=== PATIENT | female | born 2005 | race Caucasian/White ===

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

== ENCOUNTER 2023-07-19 22:14 | Inpatient (IN) | payer BC, SELFPAY ==
[2023-07-19 22:15] VITALS: BP 174/98; PULSE 134; RESP 20; TEMP 36.8; O2SAT 99; BMI 39.1
[2023-07-19 22:30] VITALS: BP 178/96; PULSE 124; RESP 22; O2SAT 96
--- NOTE | 2023-07-19 22:30 | CT_ITS ---
PROCEDURE INFORMATION: Exam: CT Abdomen And Pelvis With Contrast Exam date and time: 07/20/2023 12:29 AM Age: 17 years old Clinical indication: Abdominal pain; Additional info: Rlq/r low back pain/n/v TECHNIQUE: Imaging protocol: Computed tomography of the abdomen and pelvis with contrast. Radiation optimization: All CT scans at this facility use at least one of these dose optimization techniques: automated exposure control; mA and/or kV adjustment per patient size (includes targeted exams where dose is matched to clinical indication); or iterative reconstruction. Contrast material: ISOVUE; Contrast volume: 75 ml; Contrast route: IV; REPORTING DATA: Count of CT and Cardiac NM exams in prior 12 months: This patient has received 0 known CTs and 0 known cardiac nuclear medicine studies in the 12 months prior to the current study. COMPARISON: [facility] CT abdomen pelvis wo con 01/17/2019 12:56 PM FINDINGS: Liver: Hepatomegaly. No mass. Gallbladder and bile ducts: Normal. No calcified stones. No ductal dilation. Pancreas: Normal. No ductal dilation. Spleen: Normal. No splenomegaly. Adrenal glands: Normal. No mass. Kidneys and ureters: Small wedge-shaped foci of hypoenhancement within the right kidney mid/inferior pole extending to the peripheral cortex. No hydronephrosis. Minimal right inferior perinephric stranding Stomach and bowel: Unremarkable. No obstruction. No mucosal thickening. Appendix: No evidence of appendicitis. Intraperitoneal space: Unremarkable. No free air. No significant fluid collection. Vasculature: Unremarkable. No abdominal aortic aneurysm. Lymph nodes: Unremarkable. No enlarged lymph nodes. Urinary bladder: Unremarkable as visualized. Reproductive: Unremarkable as visualized. Bones/joints: Mild leftward curvature of the spine. No acute fracture. Soft tissues: Unremarkable. IMPRESSION: Small wedge-shaped foci of hypoenhancement within the right kidney mid/inferior pole with adjacent perinephric fat stranding, findings compatible with acute pyelonephritis.
[2023-07-19 22:34] LABS: POC Glucose,Bedside 295 (70-110)
[2023-07-19 22:46] VITALS: BP 178/96; PULSE 118; RESP 18
[2023-07-19 22:49] LABS: Basophils # 0.1 K/mm3 (0-0.2); Basophils % 0.2 % (0.1-2.0); Eosinophils # 0.1 K/mm3 (0.0-0.4); Eosinophils % 0.2 % (0.1-12.0); Hemoglobin 15.2 g/dL (12.2-16.2); Lymphocytes # 1.9 K/mm3 (0.7-4.5); Mean Corpuscular HGB Conc 35.3 g/dL (31.8-35.4); Mean Corpuscular Hemoglobin 29.6 pg (27.0-31.2); Mean Corpuscular Volume 83.8 fl (81-99); Mean Platelet Volume 9.4 fl (7.4-10.4); Monocytes % 3.9 % (1.7-9.3); Neutrophils # 23.4 K/mm3 (1.8-7.8); Neutrophils % 88.6 % (37.0-80.0); Platelet Count 306 K/mm3 (142-424); Red Blood Count 5.13 M/mm3 (4.20-5.40); Red Cell Distribution Width 13.4 % (11.5-17.5); White Blood Count 26.4 K/mm3 (4.5-13.0)
--- NOTE | 2023-07-19 22:50 | ECG_ITS ---
APPROVED REPORT Exam: Resting ECG HR:113 bpm ECG Measurements Heart Rate 113 AXES TX 152 P 54 QRSd 87 QRS 62 QT 316 T -11 QTc 383 Conclusion SINUS TACHYCARDIA NONSPECIFIC T-WAVE ABNORMALITY ABNORMAL ECG UNCONFIRMED REPORT Electronically signed by : Hai Lewis MD 07/22/2023 08:42:01
[2023-07-19 22:52] LABS: VBG Base Excess -4.2 mmol/L (-2.4-2.3); VBG HCO3 20.2 mmol/L (23-30); VBG Oxygen Saturation 79.9 % (50-70); VBG PCO2 31.9 mmol/L (35-51); VBG PH 7.42 mmol/L (7.31-7.41); VBG PO2 42.3 mmol/L (28-40); VBG Total CO2 21.2 mmol/L (23-27)
[2023-07-19 22:53] LABS: Chloride 101 mmol/L (98-107); Potassium 3.8 mmoL/L (3.5-5.1); Sodium 134 mmol/L (136-145)
[2023-07-19 22:55] LABS: Blood Urea Nitrogen 8 mg/dl (7-17); Creatinine Clearance Estimated 305 mL/min (50-200); Estimated Glomerular Filt Rate 159 ml/min (>60); GFR (African American) 192 ML/MIN (>60)
[2023-07-19 22:56] LABS: Alanine Aminotransferase 29 U/L (12-78); Albumin Level 4.3 g/dl (3.5-5.0); Alkaline Phosphatase 108 U/L (38-126); Anion Gap 14.8 mEq/L (5-15); Aspartate Amino Transferase 31 U/L (14-36); Bilirubin,Total 0.9 mg/dl (0.2-1.3); Calcium 8.7 mg/dl (8.4-10.2); Carbon Dioxide 22 mmol/L (22.0-30.0); Globulin 4.2 g/dL (1.3-3.2); Glucose 290 mg/dl (74-100); Lipase 271 U/L (23-300); Total Protein,Serum 8.5 g/dl (6.3-8.2)
[2023-07-19 22:59] LABS: Acetone, Serum (Rapid) None Detected (None Detect); HCG Qualitative, Serum Negative (Negative); MANUAL DIFFERENTIAL MANUAL DIFFERENTIAL (MANUAL DIFF)
[2023-07-19 23:00] VITALS: BP 187/92; PULSE 113; RESP 20; O2SAT 96
--- NOTE | 2023-07-19 23:21 | HMH.EDGENADL ---
Discharge Plan Disposition Patient Disposition: Admitted Clinical Impressions Clinical Impression: Severe sepsis, Abdominal pain, RLQ, Pyelonephritis, Hyperglycemia Leukocytosis Qualifiers: Leukocytosis type: unspecified Qualified Code(s): D72.829 - Elevated white blood cell count, unspecified Discharge ED Provider: Rudy Buckner General Adult HPI <Annel Brady DO - Last Filed: 07/19/23 23:29> General Chief complaint: Nausea/Vomiting/Diarrhea Stated complaint: Type 1 diabetic, weak, abd pain Time Seen by Provider: 07/19/23 22:17 Mode of Arrival: Wheelchair Source of Information: Patient Limitations: No Limitations Description of Symptoms (Recalled from ER Triage Doc. by RN): pt reports weakness, vomiting, right lower back pain since this am, reports being type 1 diabetic and her blood sugars have been in the 300s without eating today and has not took any insulin, pt also reports having ketones in urine History of Present Illness HPI narrative: This patient is a 17-year-old female with a history of type 1 diabetes, chronic proteinuria, and history of right ovarian torsion status post nephrectomy presented to the emergency department for evaluation with concern for right low back/right lower quadrant pain, nausea, and vomiting that started this morning. She notes that she has been having a hard time getting a hold of her blood sugar today, with blood sugars in the 300s. She states that she has not taken any insulin today. She notes ketones in her urine. She not been able to eat or drink anything all day given her nonbloody, nonbilious emesis. No other concerns noted at this time. No urinary symptoms noted. She does note that she still has her appendix. Related Data Home Medications Medication Instructions Recorded Confirmed acetone (urine) test #50 ea 02/27/19 07/20/23 lancets #200 ea 02/27/19 07/20/23 lisinopril 20 mg tablet 20 mg PO DAILY 02/27/19 07/20/23 blood-glucose transmitter (Dexcom #1 ea 04/07/22 07/20/23 G6 Transmitter device) insulin aspart U-100 100 unit/mL 1 sliding scale dose SQ 04/07/22 07/20/23 (3 mL) subcutaneous pen (Novolog USEASDIRECTD FlexPen U-100 Insulin aspart) insulin degludec 200 unit/mL (3 75 unit SQ HS 11/30/22 07/20/23 mL) subcutaneous pen (Tresiba FlexTouch U-200 insulin) pen needle, diabetic 31 gauge x #1,200 ea 11/30/22 07/20/23 5/16 (BD Ultra-Fine Short Pen Needle) norethindrone 1.5 mg-ethinyl 1 tab PO DAILY 07/19/23 07/20/23 estradiol 30 mcg(21)/iron 75 mg(7) tablet (Junel FE 1.5/30 (28)) Allergies Allergy/AdvReac Type Severity Reaction Status Date / Time Penicillins Allergy hives Verified 11/30/22 08:55 PFS <Annel Brady DO - Last Filed: 07/19/23 23:29> [facility] Disclaimer: The information contained in this section may have been updated after the patient was seen, as this information can be updated by other users. Medical History Chronic vaginitis Diabetes type 1, controlled Exposure to COVID-19 virus Sinusitis Viral syndrome Surgical History History of right oophorectomy Family History Grandmother Diabetes Mother Coronary artery disease Father Cancer Social History Smoking Status: Never smoker alcohol intake: never substance use type: denies use current occupational status: student Travel in the last 8 weeks: None <Annel Brady DO - Last Filed: 07/19/23 23:29> ROS Obtained: Yes All systems reviewed & no additional complaints except as documented Physical Exam <Annel Brady DO - Last Filed: 07/19/23 23:29> General General appearance: alert Comment: Uncomfortable appearing Head Head exam: atraumatic and normocephalic Eye Eye exam: Present normal appearance, PERRL and EOMI ENT ENT exam: Pres
[2023-07-19 23:27] LABS: Lymphocytes % 7 % (10-50); Monocytes % 2 % (2-9); Neutrophils % 91 % (42-76); Platelet Estimate Normal; RBC Morphology Normal; Total Cells Counted 100
[2023-07-19 23:33] LABS: Microscopic, Urine URINE MICROSCOPIC (MICROSCOPIC)
[2023-07-19 23:47] LABS: Appearance,Urine CLEAR (Clear); Blood, Urine TRACE-I (Negative); Color,Urine DARK YELLOW (Yellow); Glucose,Urine (UA) 2+ (Negative); Ketones,Urine 2+ (Negative); Leukocyte Esterase,Urine Negative (Negative); Nitrate,Urine Negative (Negative); Protein,Urine 3+ (Negative); Specific Gravity, Urine >= 1.030 (1.005-1.030); Urobilinogen,Urine 0.2 EU/dl (0.2)
[2023-07-19 23:49] LABS: Bilirubin,Urine Negative (Negative)
[2023-07-19 23:53] LABS: Lactic Acid 1.8 mmol/L (0.7-2.1)
[2023-07-20] VITALS (22 sets, daily range): BP systolic 125–213; BP diastolic 55–113; PULSE 16–123; RESP 16–24; TEMP 36.9–38.1; O2SAT 91–100; BMI 39.2; BMI 39.0
[2023-07-20 00:33] LABS: Bacteria,Urine 2+ /lpf; Mucus,Urine 1+ /lpf
--- NOTE | 2023-07-20 00:49 | PC.NURSE ---
Paged Dr Forde for Dr Buckner. CR
--- NOTE | 2023-07-20 00:59 | PC.NURSE ---
OBSERVATION ADMISSION TO 204 WITH DX OF PYELONEPHRITIS TO SERVICE OF DR. WESTBROOK.
--- NOTE | 2023-07-20 01:43 | PC.NURSE ---
pt to floor via wheelchair at this time
[2023-07-20 02:40] LABS: POC Glucose,Bedside 225 (70-110)
[2023-07-20 05:52] LABS: POC Glucose,Bedside 267 (70-110)
--- NOTE | 2023-07-20 08:11 | EXP.HP ---
History of Present Illness *Admission Date: 07/19/23 *Reason for visit:: Right lower quadrant pain, fever, vomiting *History of present illness: 17-year-old insulin requiring type I diabetic-diabetic since age 9, with previous history of surgery for right ovarian torsion with ovarian removal and repeat evaluation in the OR for abscess formation 1 week later at when she was about 13 years old who presented to the ER last night with fever, right lower quadrant pain, significant right-sided back pain and some vomiting. In the ER she was found to have evidence of a UTI with leukocytes in her urine, had significant leukocytosis and CT scanning showed right kidney with a wedge-shaped area of scarring consistent with pyelonephritis. Her clinical picture was concerning for appendicitis and the appendix was on the large side of normal but radiology opined that there was no active inflammation radiographically. Patient was admitted for IV antibiotics and fluids given her presentation with sepsis given leukocytosis, tachycardia and evidence of dehydration. This morning she feels slightly better but continues to have back pain when she moves around in the right lower quadrant as well and the back pain is located at the belt line. [facility] Disclaimer: The information contained in this section may have been updated after the patient was seen, as this information can be updated by other users. Medical History Chronic vaginitis Diabetes type 1, controlled Exposure to COVID-19 virus Sinusitis Viral syndrome Surgical History History of right oophorectomy Family History Grandmother Diabetes Mother Coronary artery disease Father Cancer Social History (Updated 07/20/23 @ 02:06 by Mayra Giles RN) Smoking Status: Never smoker alcohol intake: never substance use type: denies use current occupational status: student Travel in the last 8 weeks: None Review of Systems Review of Systems Review of systems:: pertinent systems reviewed and negative unless documented below Meds Home Medications and Allergies Home Medications Medication Instructions Recorded Confirmed Type acetone (urine) test #50 ea 02/27/19 07/20/23 History lancets #200 ea 02/27/19 07/20/23 History lisinopril 20 mg tablet 20 mg PO DAILY 02/27/19 07/20/23 History blood-glucose transmitter (Dexcom #1 ea 04/07/22 07/20/23 History G6 Transmitter device) insulin aspart U-100 100 unit/mL 1 sliding scale dose SQ 04/07/22 07/20/23 History (3 mL) subcutaneous pen (Novolog USEASDIRECTD FlexPen U-100 Insulin aspart) insulin degludec 200 unit/mL (3 75 unit SQ HS 11/30/22 07/20/23 History mL) subcutaneous pen (Tresiba FlexTouch U-200 insulin) pen needle, diabetic 31 gauge x #1,200 ea 11/30/22 07/20/23 History 5/16 (BD Ultra-Fine Short Pen Needle) norethindrone 1.5 mg-ethinyl 1 tab PO DAILY 07/19/23 07/20/23 History estradiol 30 mcg(21)/iron 75 mg(7) tablet (Junel FE 1.5/30 (28)) lisinopril 20 mg tablet 20 mg PO DAILY 07/20/23 History New Prescriptions to Start Prescriptions: Allergies Allergy/AdvReac Type Severity Reaction Status Date / Time Penicillins Allergy hives Verified 11/30/22 08:55 Exam Data for Last 24 hours Vital signs and Labs for Last 24 Hours: Temp Pulse Resp BP Pulse Ox O2 Del Method 98.5 F 113 H 19 146/85 H 97 Room Air 07/20/23 07:20 07/20/23 07:20 07/20/23 07:20 07/20/23 07:20 07/20/23 07:20 07/20/23 07:20 Laboratory Results - last 24 hr 07/19/23 22:27: POC Glucose 295 H 07/19/23 22:35: WBC 26.4 H*, RBC 5.13, Hgb 15.2, Hct 43.0, MCV 83.8, MCH 29.6, MCHC 35.3, RDW 13.4, Plt Count 306, MPV 9.4, Neut % (Auto) 88.6 H, Lymph % (Auto) 7.0 L, Moody % (Auto) 3.9, Eos % (Auto) 0.2, Baso % (Auto) 0.2, Neut # (Auto) 23.4 H, Lymph #
--- NOTE | 2023-07-20 08:44 | PC.NURSE ---
COURTESY NOTE: pt stated MD will now allow pt to advance diet to clear liquids. Nurse notified of pt statement and confirmed diet status. pt received clear liquid diet tray. no new pt requests at this time. Nilam SRNA
[2023-07-20 09:08] LABS: Red Cell Distribution Width 13.4 % (11.5-17.5)
[2023-07-20 09:16] LABS: Basophils % 0.2 % (0.1-2.0); Eosinophils % 0.2 % (0.1-12.0); Hematocrit 38.1 % (37.0-47.0); Lymphocytes % 9.2 % (10-50); Mean Corpuscular HGB Conc 35.3 g/dL (31.8-35.4); Mean Corpuscular Hemoglobin 29.9 pg (27.0-31.2); Mean Corpuscular Volume 84.5 fl (81-99); Mean Platelet Volume 9.3 fl (7.4-10.4); Monocytes # 0.9 K/mm3 (0.1-1.0); Monocytes % 4.1 % (1.7-9.3); Neutrophils # 18.6 K/mm3 (1.8-7.8); Neutrophils % 86.3 % (37.0-80.0); Platelet Count 247 K/mm3 (142-424); White Blood Count 21.5 K/mm3 (4.5-13.0)
[2023-07-20 09:17] LABS: Hemoglobin 13.4 g/dL (12.2-16.2); MANUAL DIFFERENTIAL MANUAL DIFFERENTIAL (MANUAL DIFF)
--- NOTE | 2023-07-20 09:44 | HMH.PHAINT1 ---
Pharmacy Intervention Comments: HOME MEDICATION LIST VERIFIED USING LIST FROM OUTPATIENT PHARMACY AND PT'S PARENT INTERVIEW
[2023-07-20 10:13] LABS: Lymphocytes % 7 % (10-50); Monocytes % 4 % (2-9); Neutrophils % 89 % (42-76); Platelet Estimate Normal; RBC Morphology Normal; Total Cells Counted 100
--- NOTE | 2023-07-20 10:30 | US_ITS ---
PROCEDURE INFORMATION: Exam: US Pelvis, Transvaginal Exam date and time: 07/20/2023 10:58 AM Age: 17 years old Clinical indication: Pelvic pain; Additional info: Right lower quadrant pain LABS AND CLINICAL REPORTS: Last menstrual period start date: 06/25/2023 TECHNIQUE: Imaging protocol: Real-time transvaginal pelvic ultrasound with image documentation. Transvaginal imaging was used for better evaluation of the endometrium, adnexa, and/or cervix. COMPARISON: 1. CT ABDOMEN PELVIS W CON 07/20/2023 12:29 AM 2. TRANVAG US transvaginal 01/28/2019 1:[address] abdomen pelvis wo con 01/17/2019 12:56 PM FINDINGS: Uterus: Uterus measures 5.75 cm x 3.87 cm x 4.33 cm. The uterus is retroverted. The endometrial thickness is within normal limits for a premenopausal patient measuring 1.1 cm. Punctate echogenic foci in the endometrial region may represent small calcifications. Right ovary/adnexa: The right ovary is surgically absent. No adnexal mass. Left ovary/adnexa: Left ovary measures 3.17 cm x 2.01 cm x 1.54 cm. Left ovarian volume is 5.14 mL. Normal blood flow. No mass. Physiologic follicles are present. Intraperitoneal space: No significant free fluid. IMPRESSION: 1. Surgically absent right ovary with a normal appearance of the right adnexal region. 2. Possible endometrial calcifications.
[2023-07-20 10:40] LABS: Anion Gap 19.5 mEq/L (5-15); Blood Urea Nitrogen 8 mg/dl (7-17); Calcium 8.4 mg/dl (8.4-10.2); Carbon Dioxide 19 mmol/L (22.0-30.0); Chloride 103 mmol/L (98-107); Creatinine Clearance Estimated 304 mL/min (50-200); Estimated Glomerular Filt Rate 159 ml/min (>60); GFR (African American) 192 ML/MIN (>60); Glucose 247 mg/dl (74-100); Potassium 3.5 mmoL/L (3.5-5.1); Sodium 138 mmol/L (136-145)
[2023-07-20 12:24] LABS: POC Glucose,Bedside 261 (70-110)
--- NOTE | 2023-07-20 13:29 | EXP.SURG.CON ---
History of Present Illness *Admission Date: 07/19/23 *Reason for visit:: Possible appendicitis *History of present illness: Patient is a 17-year-old female from [facility] with history of diabetes, pyelonephritis, previous oophorectomy. I am asked to see by primary care provider, Dr. Hai Lewis, for possible appendicitis. She had presented to the emergency department in the evening of 07/19/2023 with weakness, vomiting, and right lower quadrant pain beginning that morning. She does have a history of diabetes and had noticed increased blood sugar. She has a prior history of right oophorectomy for abscess when she was approximately 13 years old. Upon presentation to the emergency department there was concern for possible appendicitis as she had a significant leukocytosis with tachycardia. Evaluation in the emergency department revealed white blood cell count of 26,400. CT scan revealed findings of possibly right pyelonephritis. There was no evidence of any appendicitis on CT scan. Discussion was held with the radiologist particularly and the appendix reportedly revealed no evidence of any wall thickening, no appendicolith, and normal size with no stranding. It was air-filled. Given her clinical presentation however there was ongoing concern for possible appendicitis and surgical consultation was obtained. [facility] Disclaimer: The information contained in this section may have been updated after the patient was seen, as this information can be updated by other users. Medical History Chronic vaginitis Diabetes type 1, controlled Exposure to COVID-19 virus Sinusitis Viral syndrome Surgical History History of right oophorectomy Family History Grandmother Diabetes Mother Coronary artery disease Father Cancer Social History (Updated 07/20/23 @ 02:06 by Mayra Giles RN) Smoking Status: Never smoker alcohol intake: never substance use type: denies use current occupational status: student Travel in the last 8 weeks: None Review of Systems Review of Systems Review of systems:: pertinent systems reviewed and negative unless documented below Meds Home Medications and Allergies Home Medications Medication Instructions Recorded Confirmed Type acetone (urine) test #50 ea 02/27/19 07/20/23 History lancets #200 ea 02/27/19 07/20/23 History lisinopril 20 mg tablet 20 mg PO DAILY 02/27/19 07/20/23 History blood-glucose transmitter (Dexcom #1 ea 04/07/22 07/20/23 History G6 Transmitter device) insulin aspart U-100 100 unit/mL 0 sliding scale dose SQ DIRECTED 04/07/22 07/20/23 History (3 mL) subcutaneous pen (Novolog FlexPen U-100 Insulin aspart) insulin degludec 200 unit/mL (3 75 unit SQ HS 11/30/22 07/20/23 History mL) subcutaneous pen (Tresiba FlexTouch U-200 insulin) pen needle, diabetic 31 gauge x #1,200 ea 11/30/22 07/20/23 History 5/16 (BD Ultra-Fine Short Pen Needle) norethindrone 1.5 mg-ethinyl 1 tab PO DAILY 07/19/23 07/20/23 History estradiol 30 mcg(21)/iron 75 mg(7) tablet (Junel FE .02/06 ()) New Prescriptions to Start Prescriptions: Allergies Allergy/AdvReac Type Severity Reaction Status Date / Time Penicillins Allergy hives Verified 11/30/22 08:55 Exam (Inpt) Vital signs and Labs for Last 24 Hours: Temp Pulse Resp BP Pulse Ox O2 Del Method 98.5 F 113 H 19 146/85 H 97 Room Air 07/20/23 07:20 07/20/23 07:20 07/20/23 07:20 07/20/23 07:20 07/20/23 07:20 07/20/23 09:00 Laboratory Results - last 24 hr 07/19/23 22:27: POC Glucose 295 H 07/19/23 22:35: WBC 26.4 H*, RBC 5.13, Hgb 15.2, Hct 43.0, MCV 83.8, MCH 29.6, MCHC 35.3, RDW 13.4, Plt Count 306, MPV 9.4, Neut % (Auto) 88.6 H, Lymph % (Auto) 7.0 L, [place] % (Auto) 3.9, Eos % (Auto) 0.2, Baso % (Auto) 0.2, Neut # (
[2023-07-20 16:20] LABS: POC Glucose,Bedside 239 (70-110)
--- NOTE | 2023-07-20 16:23 | EXP.ANES.CKL ---
[facility] Disclaimer: The information contained in this section may have been updated after the patient was seen, as this information can be updated by other users. Medical History Chronic vaginitis Diabetes type 1, controlled Exposure to COVID-19 virus Sinusitis Viral syndrome Surgical History History of right oophorectomy Family History Grandmother Diabetes Mother Coronary artery disease Father Cancer Social History (Updated 07/20/23 @ 02:06 by Mayra Giles RN) Smoking Status: Never smoker alcohol intake: never substance use type: denies use current occupational status: student Travel in the last 8 weeks: None [facility] Anesthesia Checklist Patient Identification Patient Identification: Arm Band and Verbal (Name & ) Structural Data Admitted From: Inpatient Planned Operative Procedure/s: Lap appy Consent for Planned Operative Procedure(s) Verified: Yes Verified Documents: Surgical Consent and History and Physical NPO Status Verified Time NPO: 12:00 Chart Verification Results Verified: CBC, BMP, ECG and HCG Additional verifications Fingerstick Blood Glucose: 239 Patient : No Anesthesia Reactions: No Hx Blood Transfusions: No Cephalosporin Allergy: No Previous Colonoscopy: No Cardiovascular Assessment Heart Sounds: S1 & S2 Pulse Rhythm: Irregular Peripheral Edema: No Airway Assessment Mallampati Score:: Class III C-Spine Mobility Assessed: Yes TMJ Mobility Assessed: Yes Dentition: Good Dentition (nothing loose per pt.) Neurological Assessment Level of Consciousness: Awake, Alert, Appropriate and Follows Commands Hx Seizures: No Numbness or tingling in extremities: No Anesthesia Plan Anesthesia Risk discussed: Yes Anesthesia Plan: Verified ASA Class: III (Emergency) Anesthesia Type: General
--- NOTE | 2023-07-20 18:27 | EXP.OP.NOTE ---
Date of procedure: 07/20/23 Pre-op Diagnosis:: Acute appendicitis Post-op Diagnosis:: Same Procedure performed:: Laparoscopic appendectomy Surgeon:: Bo Quiroz MD OPHTHALMIC DISPENSER:: Other Anesthesia: ENID Estimated blood loss (mL): 20 Clinical Note:: Patient is a 17-year-old female from [facility] with history of diabetes, previous right oophorectomy. She had presented to the emergency department in the evening of 07/19/2023 with weakness, vomiting, and right lower quadrant pain radiating into her right lower back beginning that morning. She does have a history of diabetes and had noticed increased blood sugar. She has a prior history of right oophorectomy for torsion with subsequent laparotomy via Pfannenstiel for abscess when she was approximately 13 years old. Upon presentation to the emergency department there was concern for possible appendicitis as she had a significant leukocytosis with tachycardia and right lower quadrant tenderness. Evaluation in the emergency department revealed white blood cell count of 26,400. CT scan revealed findings of possibly right pyelonephritis. There was no evidence of any appendicitis on CT scan. Discussion was held with the radiologist particularly and the appendix reportedly revealed no evidence of any wall thickening, no appendicolith, and normal size with no stranding. It was air-filled. Given her clinical presentation however there was ongoing concern for possible appendicitis and surgical consultation was obtained. Patient continued to show signs and findings concerning for possible appendicitis. Given her ongoing findings of systemic inflammatory response and concern for appendicitis plan was made for laparoscopy for possible appendicitis. Operative findings:: Patient's cecum was somewhat flipped upon itself with a retrocecal appendix in the right upper quadrant. The appendix appeared somewhat indurated but non-suppurative. Operative note:: Patient was taken to the operating room. She was positioned in supine position. General anesthesia was induced via endotracheal tube. See catheter was placed. Abdomen was prepped and draped in the standard surgical fashion. Subumbilical skin incision was made. Dissection was carried down to the fascia which was rather difficult. Veress needle was inserted and CO2 pneumoperitoneum was achieved to 15 mmHg. 12 mm optical trocar was inserted at the umbilicus. Intraperitoneal contents were visualized. She did have some minimal adhesions in the pelvis from prior surgery. 5 mm trocar was inserted in the suprapubic location under laparoscopic visualization. Inspection was carried out of the cecum. The cecum appeared to be somewhat flipped upon itself and the ileum was densely adherent to the right lateral pelvic sidewall. This was likely from prior surgery. Ultimately additional 5 mm trocar was inserted in the right upper abdomen. Cecum was mobilized medially. Ultimately the appendix was identified initially identifying the tip in somewhat of a retrocecal location near the hepatic flexure. Appendix was grasped and retracted anteriorly. The mesoappendix was carefully divided with BASIL ultrasonic harmonic bia. Given the anatomy dissection was somewhat difficult but ultimately dissection was carried down to the appendiceal base which was relatively uninflamed. Overall the appendix appeared somewhat edematous and indurated but not suppurative. Transiently there was some minor bleeding from the appendiceal artery but this appeared to be controlled was the mesoappendix was divided with BASIL ultrasonic harmonic bia. Appendix was divided at its base with an endoscopic MARCOS linear cutting stapling device taking a cuff of cecum to ensure complete removal. This did require reload of the MARCOS stapling device. Appendix was placed within an Endo Catch retrieval device and removed from the peritoneal cavity via the umbilical trocar site. Irrigation and suctioning was perf
--- NOTE | 2023-07-20 18:58 | P.PNANES_ITS ---
[facility] Anesthesia Record Part I Anesthesia Record I Intake, IV Amount: 2,000 Hydration: Adequate Estimated blood loss (mL): 100 Urine output (mL): 300 Blood Products used (#): none Blood Pressure: 125/58 SaO2: 98 Pulse Rate: 114 Airway Patency: Patent (Talking) Respiratory Rate: 24 Temperature: 99.5 F Patient is:: Awake (Talking) and Stable Stable to PACU at:: 18:43
--- NOTE | 2023-07-20 19:30 | PC.NURSE ---
Pt arrived to floor from PACU @ 191
[2023-07-20 19:31] LABS: Microscopic,Cath URINE MICROSCOPIC (MICROSCOPIC)
[2023-07-20 20:22] LABS: POC Glucose,Bedside 276 (70-110)
[2023-07-20 21:14] LABS: Appearance,Urine/Cath CLEAR (Clear); Blood, Urine/Cath TRACE-I (Negative); Color,Urine/Cath YELLOW (Yellow); Glucose,Urine/Cath (UA) 2+ (Negative); Ketones,Urine/Cath 2+ (Negative); Leukocyte Esterase,Cath Negative (Negative); Nitrate,Cath Negative (Negative); PH,Urine/Cath 5.5 (5.0-8.5); Protein,Urine/Cath 3+ (Negative); Specific Gravity, Urine/Cath >= 1.030 (1.005-1.030); Urobilinogen,Cath 0.2 EU/dl (0.2)
[2023-07-20 22:05] LABS: Bilirubin,Cath 1+ (Negative)
[2023-07-20 22:07] LABS: RBC,Urine/Cath Occasional # /hpf (0-3); Uric Acid Crystals,Ur/Cath 3+ /lpf
[2023-07-21] VITALS (8 sets, daily range): BP systolic 121–149; BP diastolic 60–81; PULSE 86–92; RESP 16–17; TEMP 36.4–37.2; O2SAT 94–99; BMI 39.3
--- NOTE | 2023-07-21 02:51 | PC.NURSE ---
VS stable, patient on on 2LNC to maintain saturations above 90%. After sedation had begun to wear off and patient more alert, able to wean to room air. Patient able to ambulate to the bathroom and void. Incisions clean dry and intact. Prn pain medication given and relief noted.
[2023-07-21 06:26] LABS: POC Glucose,Bedside 219 (70-110)
[2023-07-21 07:25] LABS: Mean Corpuscular Hemoglobin 29.5 pg (27.0-31.2)
[2023-07-21 07:36] LABS: Anion Gap 14.7 mEq/L (5-15); Blood Urea Nitrogen 7 mg/dl (7-17); Calcium 7.8 mg/dl (8.4-10.2); Carbon Dioxide 22 mmol/L (22.0-30.0); Chloride 105 mmol/L (98-107); Creatinine Clearance Estimated 306 mL/min (50-200); Estimated Glomerular Filt Rate 159 ml/min (>60); GFR (African American) 192 ML/MIN (>60); Glucose 233 mg/dl (74-100); Potassium 3.7 mmoL/L (3.5-5.1); Sodium 138 mmol/L (136-145)
[2023-07-21 07:38] LABS: Hematocrit 33.5 % (37.0-47.0); Lymphocytes # 1.8 K/mm3 (0.7-4.5); Lymphocytes % 10.3 % (10-50); Mean Corpuscular HGB Conc 34.9 g/dL (31.8-35.4); Mean Corpuscular Volume 84.4 fl (81-99); Mean Platelet Volume 8.9 fl (7.4-10.4); Monocytes # 0.6 K/mm3 (0.1-1.0); Monocytes % 3.6 % (1.7-9.3); Neutrophils # 15.1 K/mm3 (1.8-7.8); Neutrophils % 86.1 % (37.0-80.0); Platelet Count 210 K/mm3 (142-424); Red Blood Count 3.97 M/mm3 (4.20-5.40); Red Cell Distribution Width 13.3 % (11.5-17.5); White Blood Count 17.6 K/mm3 (4.5-13.0)
[2023-07-21 07:39] LABS: Hemoglobin 11.7 g/dL (12.2-16.2)
[2023-07-21 07:40] LABS: MANUAL DIFFERENTIAL MANUAL DIFFERENTIAL (MANUAL DIFF)
[2023-07-21 08:09] LABS: Lymphocytes % 11 % (10-50); Monocytes % 9 % (2-9); Neutrophils % 80 % (42-76); Total Cells Counted 100
[2023-07-21 08:10] LABS: Platelet Estimate Normal; RBC Morphology Normal
--- NOTE | 2023-07-21 08:28 | EXP.ACUTE.PN ---
Subjective *Date: 07/21/23 *Time: 08:28 Interval history: Patient is alert, pleasant. Oriented x3. Feels much less nauseous than yesterday, surgery notes reviewed, intervention appreciated from general surgery. Medical Exam Vital signs and Labs for Last 24 Hours: Vital Signs Temp Pulse Pulse Resp BP BP BP 07/21/23 07:31 98.7 F 86 17 143/81 H 07/21/23 06:39 07/21/23 05:06 07/21/23 04:00 98.4 F 92 H 16 121/60 07/21/23 03:07 07/21/23 01:20 98.8 F 92 H 16 149/81 H 07/21/23 00:20 98.9 F 91 H 16 135/74 07/21/23 01:00 07/20/23 23:20 98.6 F 93 H 17 148/82 H 07/20/23 22:20 98.8 F 96 H 16 131/67 07/20/23 21:50 98.9 F 103 H 17 144/55 H 07/20/23 23:05 07/20/23 21:20 98.9 F 108 H 19 133/63 07/20/23 20:50 98.8 F 108 H 18 143/69 H 07/20/23 20:20 98.9 F 115 H 18 158/77 H 07/20/23 20:05 99.9 F H 113 H 18 160/82 H 07/20/23 19:50 100.2 F H 114 H 17 154/80 H 07/20/23 19:35 100.0 F H 113 H 17 165/68 H 07/20/23 19:20 100.1 F H 117 H 16 147/66 H 07/20/23 20:50 07/20/23 19:47 07/20/23 19:18 17 L 134/68 07/20/23 19:08 19 L 131/78 07/20/23 18:58 17 L 135/77 07/20/23 18:48 18 L 134/77 07/20/23 18:38 99.5 F 16 L 136/72 07/20/23 15:00 07/20/23 16:00 99.9 F H 123 H 24 160/78 H 07/20/23 13:00 07/20/23 11:00 07/20/23 09:00 07/20/23 18:59 99.5 F 114 H 24 125/58 L Pulse Ox O2 Del Method O2 Flow Rate 07/21/23 07:31 99 Room Air 07/21/23 06:39 Room Air 07/21/23 05:06 Room Air 07/21/23 04:00 97 Room Air 07/21/23 03:07 Room Air 07/21/23 01:20 94 L Room Air 07/21/23 00:20 94 L Room Air 07/21/23 01:00 Room Air 07/20/23 23:20 94 L Room Air 07/20/23 22:20 93 L Room Air 07/20/23 21:50 92 L Nasal Cannula 2 07/20/23 23:05 Room Air 07/20/23 21:20 92 L Room Air 07/20/23 20:50 93 L Room Air 07/20/23 20:20 92 L Nasal Cannula 2 07/20/23 20:05 92 L Nasal Cannula 2 07/20/23 19:50 93 L Nasal Cannula 2 07/20/23 19:35 92 L Nasal Cannula 2 07/20/23 19:20 91 L Nasal Cannula 2 07/20/23 20:50 Room Air 07/20/23 19:47 Room Air 07/20/23 19:18 100 Room Air 07/20/23 19:08 99 Room Air 07/20/23 18:58 100 Room Air 07/20/23 18:48 98 Room Air 07/20/23 18:38 100 Nasal Cannula 4 07/20/23 15:00 Room Air 07/20/23 16:00 96 Room Air 07/20/23 13:00 Room Air 07/20/23 11:00 Room Air 07/20/23 09:00 Room Air 07/20/23 18:59 Intake and Output 07/20/23 07/21/23 07/21/23 19:59 03:59 11:59 Intake Total 2059 / 3098 568 / 3098 470 / 3098 Output Total 0 / 200 200 / 200 0 / 200 Balance 2059 2898 368 / 2898 470 / 2898 Intake: Intake, Oral Amount 60 / 530 470 / 530 Intake, Total IV Amount 1999 568 / 8 0.9 % Sodium Chloride 1000ML 1, 518 / 518 000 ml @ 100 mls/hr IV .Q10H [facility] Rx#:[id number] Ertapenem Sodium 1 gm In 0.9 % 50 / 50 Sodium Chloride 50 ml @ 100 mls /hr IV Q24H [facility] Rx#:[id number] Output: Output, Urine Amount 0 / 200 200 / 200 0 / 200 Other: Number of Voids 0 Number of Unmeasured Voids 1 1 Number of Bowel Movements 1 1 Weight 235 lb 14.4 oz Patient Weight 07/21/23 11:59 Weight 235 lb 14.4 oz Laboratory Results - last 24 hr 07/20/23 08:50: WBC 21.5 H*, RBC 4.50, Hgb 13.4 D, Hct 38.1, MCV 84.5, MCH 29.9, MCHC 35.3, RDW 13.4, Plt Count 247, MPV 9.3, Neut % (Auto) 86.3 H, Lymph % (Auto) 9.2 L, [place] % (Auto) 4.1, Eos % (Auto) 0.2, Baso % (Auto) 0.2, Neut # (Auto) 18.6 H, Lymph # (Auto) 2.0, [place] # (Auto) 0.9, Eos # (Auto) 0.0, Baso # (Auto) 0.0, Total Counted 100, Neutrophils % (Manual) 89 H, Lymphocytes % (Manual) 7 L, Monocytes % (Manual) 4, Platelet Estimate Normal, RBC Morphology Normal, Sodium 138, Potassium 3.5, Chloride 103, Carbon Dioxide 19 L
--- NOTE | 2023-07-21 10:04 | PC.NURSE ---
patient ambulating in [place] with family at this time
[2023-07-21 11:14] LABS: POC Glucose,Bedside 288 (70-110)
--- NOTE | 2023-07-21 12:38 | EXP.SURG.PN ---
Subjective Narrative: Feeling better this morning. No nausea or vomiting and pain better and different than before. Tolerating fulls with BM and flatus Exam Data for Last 24 hours Vital signs and Labs for Last 24 Hours: Temp Pulse Resp BP Pulse Ox O2 Del Method O2 Flow Rate 98.6 F 87 16 130/74 97 Room Air 2 07/21/23 11:17 07/21/23 11:17 07/21/23 11:17 07/21/23 11:17 07/21/23 11:17 07/21/23 11:17 07/20/23 21:50 Laboratory Results - last 24 hr 07/20/23 16:05: POC Glucose 239 H 07/20/23 16:50: Urine Color Yellow, Urine Appearance Clear, Urine pH 5.5, Ur Specific [place] >= 1.030, Urine Protein 3+, Urine Glucose (UA) 2+, Urine Ketones 2+, Urine Blood Trace-i, Urine Nitrate Negative, Urine Bilirubin 1+ A, Urine Urobilinogen 0.2, Ur Leukocyte Esterase Negative, Urine RBC Occasional, Urine WBC None, Ur Squamous Epith Cells None, Uric Acid Crystals 3+, Urine Bacteria None 07/20/23 20:02: POC Glucose 276 H 07/21/23 06:18: POC Glucose 219 H 07/21/23 06:19: WBC 17.6 H, RBC 3.97 L, Hgb 11.7 L D, Hct 33.5 L, MCV 84.4, MCH 29.5, MCHC 34.9, RDW 13.3, Plt Count 210, MPV 8.9, Neut % (Auto) 86.1 H, Lymph % (Auto) 10.3, [place] % (Auto) 3.6, Eos % (Auto) 0.0 L, Baso % (Auto) 0.0 L, Neut # (Auto) 15.1 H, Lymph # (Auto) 1.8, [place] # (Auto) 0.6, Eos # (Auto) 0.0, Baso # (Auto) 0.0, Total Counted 100, Neutrophils % (Manual) 80 H, Lymphocytes % (Manual) 11, Monocytes % (Manual) 9, Platelet Estimate Normal, RBC Morphology Normal, Sodium 138, Potassium 3.7, Chloride 105, Carbon Dioxide 22, Anion Gap 14.7, BUN 7, Creatinine 0.50 L, Estimated Creat Clear 306 H, Estimated GFR 159, Est GFR ( Amer) 192, Glucose 233 H, Calcium 7.8 L 07/21/23 10:59: POC Glucose 288 H I & O for Last 24 hours: Intake & Output 07/18/23 07/19/23 07/20/23 07/21/23 23:59 23:59 23:59 23:59 Intake Total 2110 / 2110 1528 / 1528 Output Total 200 / 200 0 / 0 Balance 1909 / 1909 1528 / 1528 Weight 235 lb 234 lb 8 oz 235 lb 14.4 oz Constitutional Constitutional: no acute distress *Routine Abdominal Exam Comments: Soft, arik ttp, nd, inc covered Progress Note: A&P Assessment and plan (1) Abdominal pain, RLQ: Status: Acute Assessment and plan: Pain improved after lap appy and patient looking well this morning. I suspect appendicitis based on improvement but could also be pyelonephritis as well. (2) Leukocytosis: Status: Acute Assessment and plan: Improving, cont abx and recheck in am (3) Severe sepsis: Status: Acute (4) Pyelonephritis: Status: Acute (5) Diabetes type 1, controlled: Status: Acute
--- NOTE | 2023-07-21 13:32 | PC.NURSE ---
VO from miranda to order regular/diabetic diet.
[2023-07-21 16:45] LABS: POC Glucose,Bedside 213 (70-110)
--- NOTE | 2023-07-21 18:35 | PC.NURSE ---
pt ambulated in the halls today and took a shower. pt c/o pain with movement and none at rest treated per mar with improved pain. pt had been having diarrhea but stated bm were starting to form. pt had been having techs wipe buttocks after going to due to pt c/o pain with movement, educated pt on expected postop pain and encouraged pt to preform self shaun care. no signs of infection at lap sites dsg cdi. family at
--- NOTE | 2023-07-21 19:18 | PC.NURSE ---
sent all home meds home with pts mother
[2023-07-21 19:52] LABS: POC Glucose,Bedside 245 (70-110)
[2023-07-21 22:47] LABS: Peripheral Smear Review Scanned Result
[2023-07-22 03:50] VITALS: BP 161/95; PULSE 92; RESP 16; TEMP 36.9; O2SAT 98; BMI 39.3
[2023-07-22 05:16] LABS: POC Glucose,Bedside 183 (70-110)
--- NOTE | 2023-07-22 06:22 | PC.NURSE ---
PATIENT AMBULATED IN THE FOLEY. TOLERATED WELL. LAP APPY POD 2. DRSGS X 4 C/D/I. +BOWEL SOUNDS X 4 QUADS.
[2023-07-22 08:00] VITALS: BP 161/90; PULSE 100; RESP 18; TEMP 37.2; O2SAT 97
--- NOTE | 2023-07-22 08:29 | EXP.DC.SUM ---
General Admission date:: 07/20/23 Discharge date: 07/22/23 HPI HPI HPI: Patient is a 17-year-old female from [facility] with history of diabetes, pyelonephritis, previous oophorectomy. I am asked to see by primary care provider, Dr. Hai Lewis, for possible appendicitis. She had presented to the emergency department in the evening of 07/19/2023 with weakness, vomiting, and right lower quadrant pain beginning that morning. She does have a history of diabetes and had noticed increased blood sugar. She has a prior history of right oophorectomy for abscess when she was approximately 13 years old. Upon presentation to the emergency department there was concern for possible appendicitis as she had a significant leukocytosis with tachycardia. Evaluation in the emergency department revealed white blood cell count of 26,400. CT scan revealed findings of possibly right pyelonephritis. There was no evidence of any appendicitis on CT scan. Discussion was held with the radiologist particularly and the appendix reportedly revealed no evidence of any wall thickening, no appendicolith, and normal size with no stranding. It was air-filled. Given her clinical presentation however there was ongoing concern for possible appendicitis and surgical consultation was obtained. Hospital Course Hospital Course Hospital Course: Patient was admitted with initial diagnosis of pyelonephritis but her clinical picture and leukocytosis made us more concerned about appendicitis. I consulted surgery who agreed, she was taken to the OR on 07/20 for uncomplicated laparoscopic appendectomy. The following day her leukocytosis improved and she felt much better. This morning she continues to feel good, has tolerated regular diet, has had some gas pains but otherwise been up and walking around without fever, blood pressure problems or vomiting, tolerating diet well. Plan we did discharge home today. I am awaiting CBC from this morning and so if CBC continues to downtrend we will continue discharge planning. Plan to be discharged home on Levaquin for 5 days, given her penicillin allergy, we will also use pain medication and she will have surgical follow-up in the next week, will continue to await urine cultures which are pending at the time of discharge. Exam Data for Last 24 hours Vital signs and Labs for Last 24 Hours: Temp Pulse Resp BP Pulse Ox O2 Del Method O2 Flow Rate 99.0 F 100 H 18 161/90 H 97 Room Air 2 07/22/23 08:00 07/22/23 08:00 07/22/23 08:00 07/22/23 08:00 07/22/23 08:00 07/22/23 08:00 07/20/23 21:50 Laboratory Results - last 24 hr 07/21/23 10:59: POC Glucose 288 H 07/21/23 16:33: POC Glucose 213 H 07/21/23 19:40: POC Glucose 245 H 07/22/23 05:09: POC Glucose 183 H I & O for Last 24 hours: Intake & Output 07/19/23 07/20/23 07/21/23 07/22/23 11:59 11:59 11:59 11:59 Intake Total 3098 / 3098 3377 / 3377 Output Total 0 / 0 200 / 200 3 / 3 Balance 0 / 0 2898 / 2898 3374 / 3374 Weight 234 lb 8 oz 235 lb 14.4 oz 235 lb 14.525 oz Microbiology Reports for the Last 24 Hours: Microbiology 07/19/23 22:45 Blood Blood Culture - Preliminary 07/19/23 22:40 Blood Blood Culture - Preliminary Constitutional Constitutional: no acute distress *Routine HEENT Exam Head: Present normocephalic Eye: Present EOMI and PERRL ENT: Present mucous membranes moist *Routine Neck Exam Neck: Present supple; Absent lymphadenopathy *Routine Respiratory Exam Respiratory: Present CTA bilaterally *Routine Cardiovascular Exam Cardiovascular: Present RRR *Routine Abdominal Exam Abdominal: Present soft, normoactive bowel sounds and tenderness Comments: Soft, arik ttp, nd, inc covered Minimal tenderness, incisions look great. *Routine Extremities Exam Extremities: Absent cyanosis, clubbing or edema *Routine Skin Exam Skin: Present warm; Absent rash *Routine Neurological Exam Neurological: Present alert and oriented X3 Resul
[2023-07-22 08:39] LABS: Basophils % 0.1 % (0.1-2.0); Eosinophils % 0.2 % (0.1-12.0); Hemoglobin 11.6 g/dL (12.2-16.2); Lymphocytes # 2.6 K/mm3 (0.7-4.5); Lymphocytes % 16.2 % (10-50); Mean Corpuscular HGB Conc 35.1 g/dL (31.8-35.4); Mean Corpuscular Hemoglobin 29.6 pg (27.0-31.2); Mean Corpuscular Volume 84.5 fl (81-99); Mean Platelet Volume 10.2 fl (7.4-10.4); Monocytes # 0.6 K/mm3 (0.1-1.0); Monocytes % 3.9 % (1.7-9.3); Neutrophils # 12.5 K/mm3 (1.8-7.8); Neutrophils % 79.5 % (37.0-80.0); Platelet Count 210 K/mm3 (142-424); Red Blood Count 3.91 M/mm3 (4.20-5.40); Red Cell Distribution Width 13.5 % (11.5-17.5); White Blood Count 15.8 K/mm3 (4.5-13.0)
[2023-07-22 08:40] LABS: Alanine Aminotransferase 26 U/L (12-78); Albumin Level 3.3 g/dl (3.5-5.0); Albumin/Globulin Ratio 0.9 (1.1-1.8); Alkaline Phosphatase 84 U/L (38-126); Anion Gap 13.4 mEq/L (5-15); Aspartate Amino Transferase 33 U/L (14-36); Blood Urea Nitrogen 7 mg/dl (7-17); Calcium 8.1 mg/dl (8.4-10.2); Carbon Dioxide 22 mmol/L (22.0-30.0); Chloride 108 mmol/L (98-107); Creatinine Clearance Estimated 382 mL/min (50-200); Estimated Glomerular Filt Rate 206 ml/min (>60); GFR (African American) 249 ML/MIN (>60); Globulin 3.5 g/dL (1.3-3.2); Glucose 164 mg/dl (74-100); Magnesium 1.3 mg/dl (1.6-2.3); Potassium 3.4 mmoL/L (3.5-5.1); Sodium 140 mmol/L (136-145); Total Protein,Serum 6.8 g/dl (6.3-8.2)
[2023-07-22 08:44] LABS: MANUAL DIFFERENTIAL MANUAL DIFFERENTIAL (MANUAL DIFF)
[2023-07-22 08:47] LABS: Bilirubin,Total 0.1 mg/dl (0.2-1.3)
[2023-07-22 09:52] LABS: Hypochromasia 1+; Lymphocytes % 24 % (10-50); Monocytes % 7 % (2-9); Neutrophils % 69 % (42-76); Platelet Estimate Normal; Total Cells Counted 100
[2023-07-23 08:06] LABS: POC Glucose,Bedside 266 (70-110)
--- NOTE | 2023-07-23 14:12 | SW/DCPLANNER ---
Follow up phone call w/ patient: patient stated that is having pain and issues w/ gas. I did transfer patient to Surgical Suite for further assistance.
--- NOTE | 2023-07-24 10:58 | PC.NURSE ---
pt blood cultures on worklist. Pt d/c from hospital per dr. lewis on Levaquin 500 mg po x5 days. Spoke with Dr. Lewis via phone at [phone], states no further action needed.
--- NOTE | 2023-07-25 10:30 | EXP.ANES.II ---
[facility] Anesthesia Record Part II Anesthesia Record Part II Discharge Time: 19:18 Destination: Second Floor PACU nurse assessment reviewed?: Yes Patient Condition:: Good Anesthesia Complications:: None Swallowing reflex intact?: Yes Airway Patency: Patent Cyanosis?: No Blood Pressure: 134/68 SaO2: 100 Respiratory Rate: 19 Pulse Rate: 68 Temperature: 99.5 F Mental Status: Alert & Oriented Pain level:: 0 Nausea and/or vomitting:: None Intake, IV Amount: 0 Hydration: Adequate
[2023-07-25 10:31] VITALS: BP 134/68; PULSE 68; RESP 19; TEMP 37.5; O2SAT 100
== END 2023-07-22 10:02 | disposition home or self-care (01) | DRG 854 ==
LOC: ER 07-20 00:57 → 2ND 07-20 08:29
PROVIDERS: Emergency Medicine; Surgery; Admitting Provider Internal Medicine Adolescent Medicine; Emergency Provider Emergency Medicine; PCP Nurse Practitioner Family; Visit Provider Internal Medicine Adolescent Medicine
PROC: 0DTJ4ZZ Resection of Appendix, Percutaneous Endoscopic Approach (ICD-10-PCS; CPT 44970; principal; 2023-07-20 14:30)
DX: A41.9 Sepsis, unspecified organism (principal); K35.80 Unspecified acute appendicitis; N10 Acute pyelonephritis; R65.20 Severe sepsis without septic shock; E10.9 Type 1 diabetes mellitus without complications; Z79.4 Long term (current) use of insulin
CPT/HCPCS: 44970; 36415; 74177; 76830; 80048; 80053; 81001; 82009; 82803; 82962; 83605; 83690; 83735; 84703; 85007; 85025; 87040; 87086; 93005; 99291; J0131; J0696; J1335; J2405; Q9967